=== PATIENT | male | born 1975 | race African-American/Black ===

== ENCOUNTER 2023-01-18 10:46 | Emergency (ER) | payer OTHER, SELFPAY ==
[2023-01-18 10:56] VITALS: BP 130/90; PULSE 93; RESP 20; TEMP 36.6; O2SAT 100
[2023-01-18] MEDS: KETOROLAC (*BKC) 60 MG/2 ML VIAL IM (11:57)
--- NOTE | 2023-01-18 11:58 | ED.GENADULT ---
HPI - General Adult General Chief complaint: Extremity Injury, Lower Stated complaint: left knee/thigh swollen Source: patient Mode of arrival: ambulatory Limitations: no limitations History of Present Illness HPI narrative: Patient presents for evaluation of left knee pain. Symptom onset 2 days ago. Symptoms are constant, rated 8/10 in severity and 12 out of 10 with movement. Symptoms started after he heard a pop in the left knee when attempting to torque a boat. Pain is primarily in the lateral and posterior aspect of the left knee. No radicular component. No paresthesias. He tried taking Flexeril and another person's Vicodin without considerable improvement in this symptoms thereafter. Related Data Home Medications Medication Instructions Recorded Confirmed ergocalciferol (vitamin D2) 1,250 01/18/23 mcg (50,000 unit) capsule metoprolol tartrate 25 mg tablet mg 01/18/23 tizanidine 2 mg tablet mg 01/18/23 Allergies Allergy/AdvReac Type Severity Reaction Status Date / Time No Known Allergies Allergy Verified 01/18/23 11:14 Review of Systems Review of Systems: CONSTITUTIONAL: Denies fever, chills, or sweats. EYES: Denies visual changes, redness, or discharge. ENT: Denies rhinorrhea, congestion, sore throat, or otalgia. CARDIOVASCULAR: Denies chest pain, palpitations, or edema. RESPIRATORY: Denies cough or dyspnea. GASTROINTESTINAL: Denies abdominal pain, nausea, vomiting, or diarrhea. GENITOURINARY: Denies dysuria or hematuria. SKIN: Denies rash or itching. MUSCULOSKELETAL: Reports left knee pain NEUROLOGIC: Denies headache, numbness, dizziness, or weakness. PSYCHIATRIC: Denies anxiety or depression. [facility] Past Medical History Medical History No pertinent past medical history Surgical History Surgical History History of foot surgery Family History Family History Mother Family history non-contributory Social History Social History Substance use: never Gender identity (if verbalized by the patient): Male Sexual Orientation (if Verbalized by the Patient): Straight or Heterosexual Spiritual care concerns: No Exam Narrative: GENERAL: Well-appearing, well-nourished, and in no acute distress. HEAD: Normocephalic, atraumatic. EYES: PERRLA and EOMI. ENT: Nares clear, no rhinorrhea or epistaxis. Mucous membranes moist. Oropharynx without tonsillar hypertrophy exudate or other lesions. Bilateral TMs pearly cole nonbulging NECK: Supple. No adenopathy or masses. No carotid bruits or JVD CHEST: Clear to auscultation. No respiratory distress. No wheezes rales or rhonchi HEART: Regular rate and rhythm. No murmur heard. Normal peripheral pulses. ABDOMEN: Soft, nontender, nondistended, normal active bowel sounds. EXTREMITIES: Full active range of motion left knee. No tenderness in the left. No crepitus or deformity. No significant swelling. I do not appreciate any joint laxity. SKIN: Warm, dry, no rash. NEURO: No focal deficits. Alert and oriented x3. PSYCH: Normal mood and affect. Course Course Emergency Course: This is a 47-year-old male who presented for evaluation of left knee pain for last 2 days. I over did check an x-ray, which he declined. He was given Toradol for symptoms while here. He was placed in Evens wrap. Advised that he purchase a hinged knee brace from a medical supply store. I did provide him with an order for this. Advised on RICE therapy. He was provided with a prescription for diclofenac. He should follow up with ortho and primary provider. He should go to the ER for worsening symptoms. Pt in agreement with plan of care. Level of Care: Express Care Visit Vital Signs Vital signs: Vital Signs Temperature 36.6 C
== END 2023-01-18 12:30 | disposition home or self-care (01) ==
PROVIDERS: Emergency Provider Nurse Practitioner; PCP Internal Medicine
DX: S86.912A Strain of unspecified muscle(s) and tendon(s) at lower leg level, left leg, initial encounter (principal); X50.9XXA Other and unspecified overexertion or strenuous movements or postures, initial encounter
CPT/HCPCS: 96372; 99203; G0463; J1885